=== PATIENT | female | born 1945 | race Caucasian/White ===

== ENCOUNTER 2020-07-08 06:54 | Day surgery (SDC) | payer MEDICARE, OTHER ==
[~2020-07-08 06:54] MED LIST: Cefuroxime 10 MG/ML SYRINGE EYERT SCH; Lidocaine 1% PF 2 ML SDV INJECT SCH; Pilocarpine 4% Ophth Soln 15 ML Bot EYERT SCH
[2020-07-08] MEDS: Polymyxin B/Trimethoprim 10 ML Bottle EYERT SCH ×3 (07:22→08:58)
[2020-07-08] MEDS: Brimonidine 0.2% Ophth Soln 5 ML Bottle EYERT SCH ×3 (07:25→08:58)
[2020-07-08] MEDS: Phenylephrine 2.5% Ophth Soln 2 ML Bot EYERT SCH ×5 (07:30→08:38)
[2020-07-08] MEDS: Tropicamide 1% Ophth Soln 15 ML Bottle EYERT SCH ×4 (07:35→08:15)
--- NOTE | 2020-07-08 07:36 | PCM.PREANE ---
Preanesthetic Assessment - Procedure Proposed Procedure: Right Cataract - Anesthesia/Transfusion/Family Hx Anesthesia History: Prior Anesthesia Without Reaction Family History of Anesthesia Reaction: No Transfusion History: No Prior Transfusion(s) Intubation History: Unknown - Review of Systems General: No Symptoms Pulmonary: No Symptoms Cardiovascular: No Symptoms (HTN) Gastrointestinal: No Symptoms (GERD/IBS) Neurological: No Symptoms Other: Reports: Easy Bruising - Physical Assessment NPO Status Date: 07/07/20 NPO Status Time: 22:00 Vital Signs: HR:86 B/P: 153/86 Sat: 99% Temp: 97.1 Resp: 16 Height: 1.68 m Weight: 97.069 kg ASA Class: 2 Mental Status: Alert & Oriented x3 Airway Class: Mallampati = 2 Dentition: Reports: Normal Dentition, Caries Thyro-Mental Finger Breadths: 3 Mouth Opening Finger Breadths: 3 ROM/Head Extension: Full Lungs: Clear to Auscultation, Normal Respiratory Effort Cardiovascular: Regular Rate, Regular Rhythm, No Murmurs - Allergies Allergies/Adverse Reactions: Allergies Allergy/AdvReac Type Severity Reaction Status Date / Time propofol Allergy Shortness Verified 07/08/20 07:07 of Breath - Anesthesia Plan Pre-Op Medication Ordered: None - Acknowledgements Anesthesia Type Planned: MAC Pt an Appropriate Candidate for the Planned Anesthesia: Yes Alternatives and Risks of Anesthesia Discussed w Pt/Guardian: Yes Pt/Guardian Understands and Agrees with Anesthesia Plan: Yes PreAnesthesia Questionnaire - Past Health History Medical/Surgical History: Denies Medical/Surgical History Cardiovascular History: Reports: High Cholesterol, Hypertension Oncologic (Cancer) History: Reports: Basal Cell Carcinoma - Past Surgical History GI Surgical History: Reports: Colonoscopy Female Surgical History: Reports: Hysterectomy - HOME MEDS Home Medications: Home Meds . [No Known Home Meds] 07/07/20 [History] - CURRENT (IN HOUSE) MEDS Current Meds: Current Medications Brimonidine Tartrate (Alphagan 0.2% Oph Soln) 0 ml EYERT ASDIRECTED NORY Stop: 07/08/20 18:00 Last Admin: 07/08/20 07:25 Dose: 1 drop Documented by: Cefuroxime Sodium (Zinacef) 0 mg EYERT ASDIRECTED NORY Stop: 07/08/20 18:00 Lidocaine HCl (Xylocaine-Mpf 1%) 0 ml INJECT ASDIRECTED NORY Stop: 12/10/20 18:00 Phenylephrine HCl (Socrates-Synephrine 2.5% Ophth Soln) 0 ml EYERT ASDIRECTED NORY Stop: 07/08/20 18:00 Last Admin: 07/08/20 07:30 Dose: 1 drop Documented by: Pilocarpine HCl (Pilocar 4% Ophth Soln) 0 ml EYERT ASDIRECTED NORY Stop: 07/08/20 18:00 Polymyxin/Trimethoprim Sulfate (Polytrim Ophth Soln) 0 ml EYERT ASDIRECTED NORY Stop: 07/08/20 18:00 Last Admin: 07/08/20 07:22 Dose: 1 drop Documented by: Tetracaine HCl (Tetracaine 0.5% Steri-Unit Sharon) 0 ml EYEBOTH ASDIRECTED NORY Stop: 07/08/20 18:00 Tropicamide (Mydriacyl 1% Oph Soln) 0 ml EYERT ASDIRECTED NORY Stop: 07/08/20 18:00
[2020-07-08] MEDS: Tetracaine HCl/PF 0.5% 4 ML Bottle EYEBOTH SCH ×4 (08:19→08:47)
--- NOTE | 2020-07-08 08:59 | PCM48HPAN ---
Post Anesthesia Note - EVALUATION WITHIN 48HRS OF ANESTHETIC Vital Signs in Normal Range: Yes Patient Participated in Evaluation: Yes Respiratory Function Stable: Yes Airway Patent: Yes Cardiovascular Function Stable: Yes Hydration Status Stable: Yes Pain Control Satisfactory: Yes Nausea and Vomiting Control Satisfactory: Yes Mental Status Recovered: Yes Vital Signs: Last Vital Signs Temp 36.2 C 07/08/20 06:55 Pulse 86 07/08/20 06:55 Resp 16 07/08/20 06:55 BP 153/86 H 07/08/20 06:55 Pulse Ox 99 07/08/20 06:55
[2020-07-08 11:23] VITALS: BP 168/97; PULSE 88
== END 2020-07-08 09:08 | disposition home or self-care (01) ==
LOC: JD.SDS 06:54
PROVIDERS: ATTEND Ophthalmology
DX: E11.36 Type 2 diabetes mellitus with diabetic cataract (principal); H25.813 Combined forms of age-related cataract, bilateral; H35.373 Puckering of macula, bilateral; H16.103 Unspecified superficial keratitis, bilateral; H16.223 Keratoconjunctivitis sicca, not specified as Sjogren's, bilateral; H02.831 Dermatochalasis of right upper eyelid; H02.834 Dermatochalasis of left upper eyelid; I10 Essential (primary) hypertension; E78.00 Pure hypercholesterolemia, unspecified; Z98.890 Other specified postprocedural states; Z87.891 Personal history of nicotine dependence; Z79.899 Other long term (current) drug therapy; Z88.8 Allergy status to other drugs, medicaments and biological substances
CPT/HCPCS: C1780; J0697; J2001

== ENCOUNTER 2025-01-15 09:11 | Day surgery (SDC) | payer MEDICARE, BC ==
[2025-01-15] MEDS: Polymyxin B/Trimethoprim 10 ML Bottle EYELF SCH (09:46)
[2025-01-15 09:47] VITALS: BP 165/85; PULSE 70
[2025-01-15] MEDS: Brimonidine 0.2% Ophth Soln 5 ML Bottle EYELF SCH (09:53)
[2025-01-15] MEDS: Phenylephrine 2.5% Ophth Soln 2 ML Bot EYELF SCH (10:00)
[2025-01-15] MEDS: Tropicamide 1% Ophth Soln 3 ML Bottle EYELF SCH (10:07)
[2025-01-15] MEDS: Tetracaine HCl/PF 0.5% 4 ML Bottle EYEBOTH SCH (11:00)
[2025-01-15] MEDS: Lidocaine 1% PF 2 ML SDV INJECT SCH (11:17)
[2025-01-15] MEDS: Cefuroxime 10 MG/ML SYRINGE EYELF SCH (11:26)
[2025-01-15] MEDS: Pilocarpine 4% Ophth Soln 15 ML Bot EYELF SCH (11:32)
== END 2025-01-15 11:42 | disposition home or self-care (01) ==
LOC: JD.SDS 09:11
PROVIDERS: ATTEND Ophthalmology
DX: H26.9 Unspecified cataract (principal); H21.81 Floppy iris syndrome; H21.42 Pupillary membranes, left eye; I10 Essential (primary) hypertension; E78.00 Pure hypercholesterolemia, unspecified; Z79.899 Other long term (current) drug therapy
CPT/HCPCS: A9270-GY; J3490